=== PATIENT | male | born 1950 | race Caucasian/White ===

== ENCOUNTER 2017-06-02 22:34 | Emergency (ER) | payer OTHER, MEDICARE ==
[~2017-06-02] VITALS: Ht 182.9 cm; Wt 117.3 kg
[~2017-06-02 22:34] MED LIST: ASPIRIN 81M81 MG/TA2 PO; GLUCOPHAGE1000 MG PO; LEVOXYL0.2 MG PO; PRAVACHOL10 MG; ZESTRIL 20MG TA20 MG PO
[2017-06-02 22:35] VITALS: BP 180/79; TEMP 97.7
[2017-06-02] MEDS ORDERED: CIALIS5 MG PO (22:40)
[2017-06-02] MEDS ORDERED: PRAVACHOL 40MG40 MG PO (22:40)
[2017-06-02] MEDS ORDERED: PROCTOFOAM-HC 11 FOA RC (22:41)
[2017-06-02] MEDS ORDERED: UROCIT-K 5540 MG/TAB PO (22:41)
[2017-06-02] MEDS ORDERED: PROSCAR 5MG5 MG PO (22:42)
[2017-06-02] MEDS ORDERED: CLARITIN 1010 MG/TAB PO (22:44)
[2017-06-02] MEDS ORDERED: FISH OIL 1000MG1 CAP PO (22:45)
[2017-06-02 23:32] LABS: BASO # 0.1 (0.0-0.2); EOS # 0.4 (0.0-0.7); EOS % 3.4 % (0-4.0); GRAN # 7.2 (1.4-6.5); GRAN % 60.5 % (42.2-75.2); HEMATOCRIT 44.3 % (42.0-52.0); HEMOGLOBIN 15.4 g/dl (13.5-18.0); LYMPH # 2.9 (1.2-3.4); LYMPH % 24.6 % (20.0-51.0); MEAN CELL VOLUME 98 fl (80.0-100.0); MEAN CORPUSCULAR HEMOGLOBIN 34 pg (27.0-31.0); MEAN CORPUSCULAR HGB CONC 35 g/dl (33.0-37.0); MEAN PLATELET VOLUME 9.8 fl (7.4-10.4); MONO # 1.2 (0.1-0.6); MONO % 9.9 % (1.7-9.3); PLATELET COUNT 234 K/mm3 (130-400); RED BLOOD COUNT 4.52 M/mm3 (4.20-5.60); REDCELL DISTRIBUTION WIDTH-CV 12.9 % (11.5-14.5)
[2017-06-02 23:42] LABS: ADJUSTED CALCIUM 9.7 mg/dL (8.4-10.2); ALBUMIN 4.2 gm/dL (3.5-5.0); BILIRUBIN,TOTAL 0.5 mg/dL (0.0-1.0); CALCIUM 9.9 mg/dL (8.4-10.2); CREATININE, serum 0.77 mg/dL (0.66-1.25); POTASSIUM 4.1 mmol/L (3.4-5.0); TOTAL PROTEIN 7.6 gm/dL (6.4-8.2)
[2017-06-02 23:54] LABS: TROPONIN-I 0.018 ng/mL (0.000-0.034)
[2017-06-03] MEDS ORDERED: ATIVAN 1MG T1 MG/TAB PO (02:19)
[2017-06-03 02:33] VITALS: PULSE 76
== END 2017-06-03 02:33 | disposition home or self-care (01) ==
LOC: COL.ER 22:34
PROVIDERS: Nurse Practitioner
DX: F41.9 Anxiety disorder, unspecified (principal); R06.00 Dyspnea, unspecified; E11.9 Type 2 diabetes mellitus without complications; I10 Essential (primary) hypertension; E78.5 Hyperlipidemia, unspecified; Z87.891 Personal history of nicotine dependence; Z98.890 Other specified postprocedural states; Z79.82 Long term (current) use of aspirin; Z79.84 Long term (current) use of oral hypoglycemic drugs

== ENCOUNTER 2017-06-08 14:26 | Emergency (ER) | payer OTHER, MEDICARE ==
[~2017-06-08] VITALS: Ht 182.9 cm; Wt 114.0 kg
[~2017-06-08 14:26] MED LIST changes: +ATIVAN 1MG T1 MG/TAB PO; +CIALIS5 MG PO; +CLARITIN 1010 MG/TAB PO; +FISH OIL 1000MG1 CAP PO; +PRAVACHOL 40MG40 MG PO; +PROCTOFOAM-HC 11 FOA RC; +PROSCAR 5MG5 MG PO; +UROCIT-K 5540 MG/TAB PO
[2017-06-08 14:27] VITALS: BP 169/78; TEMP 98.1
[2017-06-08] MEDS ORDERED: PROZAC 10MG10 MG PO (14:34)
[2017-06-08] MEDS ORDERED: ATIVAN 1MG T1 MG/TAB PO (15:55)
[2017-06-08 16:03] VITALS: PULSE 92
== END 2017-06-08 16:04 | disposition home or self-care (01) ==
LOC: COL.ER 14:26
DX: F41.9 Anxiety disorder, unspecified (principal); Z87.891 Personal history of nicotine dependence

== ENCOUNTER 2019-03-22 08:34 | Emergency (ER) | payer MEDICARE, OTHER ==
[~2019-03-22] VITALS: Ht 182.9 cm; Wt 109.1 kg
[~2019-03-22 08:34] MED LIST changes: +PROZAC 10MG10 MG PO
[2019-03-22 08:38] VITALS: BP 137/74; TEMP 97.9
[2019-03-22 09:06] LABS: HEMATOCRIT 43.3 % (42.0-52.0); HEMOGLOBIN 14.8 g/dl (13.5-18.0); MEAN CELL VOLUME 98 fl (80.0-100.0); MEAN CORPUSCULAR HEMOGLOBIN 34 pg (27.0-31.0); MEAN CORPUSCULAR HGB CONC 34 g/dl (33.0-37.0); MEAN PLATELET VOLUME 9.9 fl (7.4-10.4); PLATELET COUNT 275 K/mm3 (130-400); RED BLOOD COUNT 4.42 M/mm3 (4.20-5.60); REDCELL DISTRIBUTION WIDTH-CV 12.9 % (11.5-14.5)
[2019-03-22 09:11] LABS: INR 0.9 (0.8-3.0)
[2019-03-22 09:13] LABS: PARTIAL THROMBOPLASTIN TIME 31.3 SECONDS (26.0-37.0)
[2019-03-22 09:20] LABS: ALBUMIN 4.2 gm/dL (3.5-5.0); BILIRUBIN,TOTAL 0.6 mg/dL (0.0-1.0); CALCIUM 9.3 mg/dL (8.4-10.2); CREATININE, serum 0.68 (0.66-1.25); POTASSIUM 4.7 mmol/L (3.4-5.0); TOTAL PROTEIN 8.1 gm/dL (6.4-8.2)
[2019-03-22 09:35] LABS: BASOPHIL 5 % (0-2); EOSINOPHIL 1 % (0-4); LYMPHOCYTE 14 % (20.0-51.0); NEUTROPHILS 76 % (42.0-75.2); PLATELET ESTIMATE NORMAL (NORMAL)
[2019-03-22 09:52] LABS: COLLECTION METHOD CLEAN CATCH
[2019-03-22 09:58] LABS: PH 6 (5-8); SQUAMOUS EPITHELIAL 0-2 /hpf; URINE APPEARANCE Clear; URINE BACTERIA None Seen /hpf; URINE BILIRUBIN Negative (NEGATIVE); URINE BLOOD 3+ (NEGATIVE); URINE COLOR Yellow; URINE GLUCOSE Negative (NEGATIVE); URINE KETONE Negative (NEGATIVE); URINE LEUKOCYTE ESTERASE Negative (NEGATIVE); URINE NITRATE Negative (NEGATIVE); URINE PROTEIN(semi-quant) Negative (NEGATIVE); URINE RBC 20-50 /hpf; URINE UROBILINOGEN Negative (NEGATIVE)
[2019-03-22] MEDS ORDERED: CIPRO 500MG TA500 MG PO (11:16)
[2019-03-22 11:28] VITALS: PULSE 74
== END 2019-03-22 11:29 | disposition home or self-care (01) ==
LOC: COL.ER 08:34
PROVIDERS: Emergency Medicine
DX: R31.9 Hematuria, unspecified (principal); E11.9 Type 2 diabetes mellitus without complications; Z87.442 Personal history of urinary calculi; Z79.84 Long term (current) use of oral hypoglycemic drugs
CPT/HCPCS: J7030; Q9967